=== PATIENT | male | born 1955 | race Caucasian/White ===

== ENCOUNTER → 2016-09-27 | Outpatient (CLI) | payer BC ==
[~2016-09-27] MED LIST: AMLO5TAB4 PO; LISI-788 PO
[2016-09-27 17:05] LABS: ALT/SGPT 31 U/L (12-78); BLOOD UREA NITROGEN 11 mg/dl (7-18); CALCIUM 9.3 mg/dl (8.5-10.1); CARBON DIOXIDE 28 mmol/L (21-32); CHLORIDE 104 mmol/L (98-107); CHOLESTEROL 155 mg/dl (0-200); GLUCOSE 100 mg/dl (70-99); POTASSIUM 3.3 mmol/L (3.5-5.1); SODIUM 138 mmol/L (136-145); TRIGLYCERIDES 63 mg/dl (0-150); VERY LOW DENSITY LIPOPROT CALC 13 mg/dl
[2016-09-27 17:25] LABS: ALB/GLOB RATIO 1.2 (0.9-2); ALKALINE PHOSPHATASE 45 U/L (45-117); AST/SGOT 33 U/L (15-37); CHOLESTEROL/HDL RATIO 2.3; HDL CHOLESTEROL 68 mg/dl; LDL CHOLESTEROL CALCULATED 74 mg/dl
[2016-09-27 18:23] LABS: LYME DISEASE AB IGG NEG (NEG); LYME DISEASE AB IGM NEG (NEG)
[2016-10-08 15:35] LABS: ANAPLASMA PHAGOCYTOPHIL IGG <1:64 (<1:64); ANAPLASMA PHAGOCYTOPHIL IGM <1:20 (<1:20); EHRLICHIA CHAFF IGG AB <1:64 (<1:64); EHRLICHIA CHAFF IGM AB <1:20 (<1:20); R. TYPHI IgG AB Detected (Not Detected); R. TYPHI IgM AB Not Detected (Not Detected); RMSF IgM AB Not Detected (Not Detected)
== END | disposition home or self-care (01) ==
LOC: C.LABBC 12:35
PROVIDERS: ATTEND Physician Assistant
DX: R51 Headache (principal); I10 Essential (primary) hypertension; N20.9 Urinary calculus, unspecified; F41.0 Panic disorder [episodic paroxysmal anxiety]; E78.5 Hyperlipidemia, unspecified

== ENCOUNTER → 2017-05-09 | Outpatient (CLI) | payer BC ==
--- NOTE | 2017-05-09 11:15 | DIAGNOSTIC IMAGING REPORT ---
R SHOULDER MIN 2 VIEWS ROUTINE CLINICAL HISTORY: Right shoulder pain. Recent injury. COMPARISON: None FINDINGS: Alignment of the right shoulder is anatomic. No acute fracture. There is mild glenohumeral joint osteoarthritis and moderate acromioclavicular joint osteoarthritis. IMPRESSION: 1. No acute fracture or dislocation of the right shoulder. 2. Moderate osteoarthritis of the right acromioclavicular joint and mild osteoarthritis of the right glenohumeral joint. Electronically signed by: Lucas Green M.D. 05/09/2017 11:14 AM Dictated Date/Time: 05/09/2017 11:13 AM
== END | disposition home or self-care (01) ==
LOC: C.RADBC 10:48
PROVIDERS: ATTEND Family Medicine Adult Medicine
DX: M25.511 Pain in right shoulder (principal); M19.011 Primary osteoarthritis, right shoulder